=== PATIENT | male | born 1965 | race Caucasian/White ===

== ENCOUNTER 2018-12-16 12:29 | Emergency (ER) | payer MEDICAID ==
[~2018-12-16] VITALS: Ht 182.9 cm; Wt 90.7 kg
[2018-12-16 12:31] VITALS: BP 159/92; Ht 182.9 cm; Wt 90.7 kg
[2018-12-16] MEDS ORDERED: CLEOCIN HCL300 MG PO (12:33)
[2018-12-16] MEDS ORDERED: HYDROCODON-ACE1 EAC2 PO (13:03)
== END 2018-12-16 13:36 | disposition home or self-care (01) ==
LOC: D.ER 12:29
DX: K04.7 Periapical abscess without sinus (principal)

== ENCOUNTER 2019-02-26 08:47 | Emergency (ER) | payer OTHER ==
[~2019-02-26] VITALS: Ht 182.9 cm; Wt 90.9 kg
[~2019-02-26 08:47] MED LIST: CLEOCIN HCL300 MG PO; HYDROCODON-ACE1 EAC2 PO
[2019-02-26 08:54] VITALS: Ht 182.9 cm; Wt 90.9 kg
[2019-02-26 09:22] LABS: BASOPHILS 0.4 % (0-2); EOSINOPHILS 1.3 % (0-7); HEMATOCRIT 47.2 % (42.0-54.0); HEMOGLOBIN 17.4 g/dL (13.5-17.5); IMMATURE GRANULOCYTES 0.2 % (0-5); LYMPHOCYTES 30.7 % (15-50); MCH 30.8 pg (26.0-34.0); MCHC 36.9 g/dL (31.0-37.0); MCV 83.5 fL (80.0-100.0); MEAN PLATELET VOLUME 10.4 fL (7.4-10.4); MONOCYTES 5.4 % (2-11); PLATELET COUNT 231 10x3/uL (130-400); RBC 5.65 10x6/uL (4.20-6.10); RDW 12.3 % (11.5-14.5); WBC 8.6 10x3/uL (4.8-10.8)
[2019-02-26 09:29] LABS: ALBUMIN 3.6 g/dL (3.4-5.0); ALKALINE PHOSPHATASE 194 U/L (46-116); ALT (SGPT) 34 U/L (10-68); BILIRUBIN - TOTAL 0.37 mg/dL (0.2-1.3); CALCIUM 8.1 mg/dL (8.5-10.1); CARBON DIOXIDE 23.5 mmol/L (21.0-32.0); CHLORIDE - SERUM 97 mmol/L (98-107); CKMB 0.5 U/L (0.0-3.6); CREATINE KINASE 74 UL (21-232); CREATININE - SERUM 1.2 mg/dL (0.6-1.3); POTASSIUM - SERUM 3.8 mmol/L (3.5-5.1); PROTEIN - SERUM 7.1 g/dL (6.4-8.2); SODIUM 130 mmol/L (136-145); UREA NITROGEN 10 mg/dL (7-18); eGFR NON AFRICAN AMERICAN 68 mL/min (90-120)
[2019-02-26 09:43] LABS: CALC OSMOLALITY 284 mosm/kg (275-300); TROPONIN-I < 0.017 ng/mL (0.000-0.060)
[2019-02-26 09:45] LABS: GLUCOSE 556 mg/dL (74-106)
[2019-02-26] MEDS ORDERED: GLUCOPHAGE500 MG PO (11:45)
[2019-02-26 12:26] VITALS: BP 132/80
== END 2019-02-26 12:27 | disposition home or self-care (01) ==
LOC: D.ER 08:47
PROVIDERS: Family Medicine
DX: E11.9 Type 2 diabetes mellitus without complications (principal); R51 Headache

== ENCOUNTER 2019-04-07 20:32 | Emergency (ER) | payer OTHER ==
[~2019-04-07] VITALS: Ht 182.9 cm; Wt 90.0 kg
[~2019-04-07 20:32] MED LIST changes: +GLUCOPHAGE500 MG PO
[2019-04-07 21:16] VITALS: Ht 182.9 cm; Wt 90.0 kg
[2019-04-07] MEDS ORDERED: LISINOPRIL5 MG PO (21:18)
[2019-04-07 22:00] LABS: BASOPHILS 0.2 % (0-2); EOSINOPHILS 0.6 % (0-7); HEMATOCRIT 46.5 % (42.0-54.0); HEMOGLOBIN 17.2 g/dL (13.5-17.5); IMMATURE GRANULOCYTES 0.2 % (0-5); LYMPHOCYTES 29.7 % (15-50); MCH 31.2 pg (26.0-34.0); MCV 84.4 fL (80.0-100.0); MEAN PLATELET VOLUME 9.6 fL (7.4-10.4); MONOCYTES 5.2 % (2-11); NEUTROPHILS 64.1 % (40-80); PLATELET COUNT 254 10x3/uL (130-400); RBC 5.51 10x6/uL (4.20-6.10); RDW 12.7 % (11.5-14.5); WBC 10.3 10x3/uL (4.8-10.8)
[2019-04-07 22:12] LABS: APPEARANCE CLEAR (CLEAR); BILIRUBIN NEGATIVE (NEGATIVE); COLOR YELLOW (YELLOW); GLUCOSE 50 mg/dL (NEGATIVE); KETONE NEGATIVE (NEGATIVE); NITRITE NEGATIVE (NEGATIVE); PROTEIN NEGATIVE (NEGATIVE); UROBILINOGEN NORMAL (NORMAL)
[2019-04-07 22:28] LABS: ALBUMIN 4.1 g/dL (3.4-5.0); ALKALINE PHOSPHATASE 143 U/L (46-116); ALT (SGPT) 35 U/L (10-68); BILIRUBIN - TOTAL 0.25 mg/dL (0.2-1.3); CALC OSMOLALITY 280 mosm/kg (275-300); CALCIUM 9.1 mg/dL (8.5-10.1); CARBON DIOXIDE 29.5 mmol/L (21.0-32.0); CHLORIDE - SERUM 103 mmol/L (98-107); CREATINE KINASE 90 UL (21-232); POTASSIUM - SERUM 4.1 mmol/L (3.5-5.1); PROTEIN - SERUM 7.9 g/dL (6.4-8.2); SODIUM 140 mmol/L (136-145); UREA NITROGEN 16 mg/dL (7-18); eGFR NON AFRICAN AMERICAN 83 mL/min (90-120)
[2019-04-07 22:37] LABS: GLUCOSE 120 mg/dL (74-106)
[2019-04-07] MEDS ORDERED: ZOFRAN ODT4 MG/UDTAB PO (22:43)
[2019-04-07 23:14] VITALS: BP 131/78
== END 2019-04-07 23:14 | disposition home or self-care (01) ==
LOC: D.ER 20:32
PROVIDERS: Emergency Medicine
DX: R53.1 Weakness (principal); R42 Dizziness and giddiness; R51 Headache; T67.5XXA Heat exhaustion, unspecified, initial encounter; X58.XXXA Exposure to other specified factors, initial encounter; Y93.89 Activity, other specified; Y92.89 Other specified places as the place of occurrence of the external cause

== ENCOUNTER 2020-03-25 18:12 | Emergency (ER) | payer OTHER ==
[~2020-03-25] VITALS: Ht 182.9 cm; Wt 98.6 kg
[~2020-03-25 18:12] MED LIST changes: +LISINOPRIL5 MG PO; +ZOFRAN ODT4 MG/UDTAB PO
[2020-03-25 18:22] VITALS: Ht 182.9 cm; Wt 98.6 kg
[2020-03-25] MEDS ORDERED: ULTRAM50 MG PO (19:24)
[2020-03-25] MEDS ORDERED: ERYTHROMYCIN OPT1 GM LEFT EYE (19:24)
[2020-03-25 19:38] VITALS: BP 139/90
== END 2020-03-25 19:38 | disposition home or self-care (01) ==
LOC: D.ER 18:12
DX: T15.82XA Foreign body in other and multiple parts of external eye, left eye, initial encounter (principal); W22.8XXA Striking against or struck by other objects, initial encounter; Y93.9 Activity, unspecified; Y92.9 Unspecified place or not applicable; I10 Essential (primary) hypertension; E11.9 Type 2 diabetes mellitus without complications; Z79.84 Long term (current) use of oral hypoglycemic drugs; Z72.0 Tobacco use